=== PATIENT | male | born 1955 | race Caucasian/White ===

== ENCOUNTER 2022-02-01 22:50 | Emergency (ER) | payer MEDICARE, BC ==
--- NOTE | 2022-02-01 23:14 | ED Physician Documentation ---
PD HPI FOCAL NEURO - Stated complaint Stated Complaint: LOSS OF BALANCE - Chief complaint Chief Complaint: Neuro - Additional information Additional information: Patient is 66-year-old male presenting to the emergency department with loss of balance. Reports symptoms began acutely 2 hours ago. Reports that he simply lost balance and coordination in his legs. He has a difficult time elucidating the sensation more fully but states that if he stands up or looks upward he immediately loses his balance and feels as though he is going to fall. He denies any vertiginous sensation associated with this. Denies any tinnitus or hearing loss. 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 Currently takes baby aspirin but no other anticoagulant or antiplatelet medications. He denies any residual focal or lateralizing neurologic deficits from his previous CVA. Otherwise denies for any fever, chills, chest pain, shortness of breath, abdominal pain, nausea, vomiting, diarrhea, constipation. Review of Systems Ten Systems: 10 systems reviewed and negative Constitutional: denies: Fever Eyes: denies: Loss of vision Ears: denies: Loss of hearing Nose: denies: Rhinorrhea / runny nose Throat: denies: Dental pain / toothache Cardiac: denies: Chest pain / pressure : denies: Dysuria Skin: denies: Rash Neurologic: reports: Other (Loss of balance) PD PAST MEDICAL HISTORY - Past Medical History Past Medical History: Yes Cardiovascular: Hypertension Neuro: Other (Hemorrhagic stroke) Endocrine/Autoimmune: Type 2 diabetes - Present Medications Home Medications: Ambulatory Orders Medication Instructions Recorded Confirmed Insulin Glargine,Hum.rec.anlog 40 unit SUBQ DAILY 02/01/22 02/01/22 [Kateaglregan Singh U-100] Lisinopril [Zestril] 40 mg ORAL DAILY 02/01/22 02/01/22 Metoprolol Succinate [Toprol Xl] 25 mg ORAL BID 02/01/22 02/01/22 Propranolol [Inderal] 10 mg PO PRN PRN 02/01/22 02/01/22 Sertraline [Zoloft] 50 mg PO DAILY 02/01/22 02/01/22 amLODIPine [Norvasc] 30 mg PO DAILY 02/01/22 02/01/22 traZODone [Desyrel] 50 mg PO HS 02/01/22 02/01/22 - Allergies Allergies/Adverse Reactions: Allergies Allergy/AdvReac Type Severity Reaction Status Date / Time No Known Drug Allergies Allergy Verified 02/01/22 23:22 PD ED PE NORMAL - Vitals Vital signs reviewed: Yes - General General: Alert and oriented X 3 - HEENT HEENT: Atraumatic, PERRL, EOMI, Ears normal, Moist mucous membranes - Neck Neck: Supple, no meningeal sign, No bony TTP - Cardiac Cardiac: RRR, No gallop - Respiratory Respiratory: No respiratory distress, Clear bilaterally - Abdomen Abdomen: Normal bowel sounds, Non tender - Rectal Rectal: Deferred - Derm Derm: Normal color - Extremities Extremities: No deformity - Neuro Neuro: Alert and oriented X 3, testing director 2-12 intact, No motor deficit, No sensory deficit, Normal speech - Psych Psych: Normal mood NIHSS - Time Time: 23:15 - Level of Consciousness Level of consciousness: (0) Alert, Keenly responsive LOC Questions: (0) Answers both Q's correct - Gaze Best Gaze: (0) Normal - Visual Visual: (0) No loss - Facial Palsy Facial Palsy: (0) Normal, symmetrical movement - Motor Arms (both separate) Motor Arm (right): (0) No drift Motor Arm (left): (0) No drift - Motor Legs (both separate) Motor Leg (right): (0) No drift Motor Leg (left): (0) No drift - Limb Ataxia Limb Ataxia: (0) Absent - Sensory Sensory: (0) Normal - Best Language Best Language: (0) No aphasia - Dysarthria Dysarthria: (0) Normal - Extinction and Inattention (formally neg Extinction and inattention: (0) No abnormality Results - Vitals Vitals: Vital Signs - 24 hr 02/01/22 02/01/22 02/02/22 23:02 23:36 00:02 Temperature 36.5 C Heart Rate 81 73 73 Respiratory 18 18 19 Rate Blood Pressure 171/95 H 157/84 H 156/86 H O2 Saturation 98 100 99 02/02/22 00:30 Temperature Heart Rate 76 Respiratory 14 Rate Blood Pressure 153/86 H O2 Saturation 97 Oxygen O2 Source Room air - EKG (time done) 2306 Rate: Rate (enter#) (76) Rhythm: NSR [place]: Normal Intervals: Normal ND QRS: Normal Ischemia: T wave inversion Computer interpretation: Agree with computer - Labs Labs: Laboratory Tests 02/01/22 02/01/22 02/01/22 23:06 23:06 23:06 WBC 7.8 RBC 4.23 L Hgb 11.4 L Hct 36.2 L MCV 85.6 MCH 27.0 MCHC 31.5 L RDW 15.1 H Plt Count 281 MPV 9.1 Neut # (Auto) 4.4 Lymph # (Auto) 2.1 [place] # (Auto) 0.7 Eos # (Auto) 0.6 Baso # (Auto) 0.1 Absolute Nucleated RBC 0.00 Nucleated RBC % 0.0 PT 11.4 INR 1.0 Sodium 140 Potassium 3.9 Chloride 103 Carbon Dioxide 27 Anion Gap 10.0 BUN 29 H Creatinine 1.0 Estimated GFR (MDRD) 75 L Glucose 139 H Calcium 9.5 Total Bilirubin 0.6 AST 34 ALT 52 Alkaline Phosphatase 51 Total Protein 8.0 Albumin 4.7 Globulin 3.3 Albumin/Globulin Ratio 1.4 Lipase 43 SARS-CoV-2 (PCR) 02/01/22 23:18 WBC RBC Hgb Hct MCV MCH MCHC RDW Plt Count MPV Neut # (Auto) Lymph # (Auto) [place] # (Auto) Eos # (Auto) Baso # (Auto) Absolute Nucleated RBC Nucleated RBC % PT INR Sodium Potassium Chloride Carbon Dioxide Anion Gap BUN Creatinine Estimated GFR (MDRD) Glucose Calcium Total Bilirubin AST ALT Alkaline Phosphatase Total Protein Albumin Globulin Albumin/Globulin Ratio Lipase SARS-CoV-2 (PCR) NOT DETECTED PD MEDICAL DECISION MAKING - ED course Complexity details: reviewed results, re-evaluated patient, d/w patient, d/w family, d/w webmethods consultant ED course: Patient is 66-year-old male presenting to the emergency department with acute loss of balance. Arrived to the emergency department within 2 hours of the onset of his symptoms. Does have recent history of hemorrhagic CVA and is not a tPA candidate. I did initiate a stroke alert however and obtained both CT scans of the head as well as CTA scans of the head and neck. These were negative for any recurrent hemorrhagic event or identified infarct however there was some mild narrowing of the basilar artery. Labs obtained were within normal limits or nonactionable. While in the emergency department patient's initial neurologic exam had an NIH score of 0 however upon initial arrival to the emergency department I did not test his balance, gait or evaluate for any insufficiency of Romberg's positioning. While in the emergency department his symptoms did completely resolve and he was able to ambulate without difficulty back and forth to the bathroom. I did discuss his care directly with neurology at [facility] who do recommend MRI/MRA. Additionally they had recommendations to ensure that the patient is either on or initiated on a high- dose 80 mg daily statin and once the MR imaging is obtained to initiate dual antiplatelet therapy. His care was discussed with the emergency department at [facility]. At this time they are the nearest facility that has MR capability and is able to accept him for evaluation. Unfortunately we do not have MR capability at this facility for the next week. Family however is agreeable for transfer to [facility] for evaluation. Transferred from our facility in an asymptomatic and otherwise medically stable condition. Departure - Departure Disposition: 02 Transfer Acute Care Hosp Clinical Impression: TIA (transient ischemic attack)
[2022-02-01 23:17] LABS: BASOPHILS # (AUTO) 0.1 10^3/uL (0.0-0.1); BASOPHILS % (AUTO) 0.9 %; EOSINOPHILS # (AUTO) 0.6 10^3/uL (0.0-0.7); EOSINOPHILS % (AUTO) 7.3 %; HCT - HEMATOCRIT 36.2 % (42.0-52.0); HGB - HEMOGLOBIN 11.4 g/dL (14.0-18.0); LYMPHOCYTES # (AUTO) 2.1 10^3/uL (1.5-3.5); LYMPHOCYTES % (AUTO) 26.4 %; MEAN CORPUSCULAR HGB CONC 31.5 g/dL (32.0-36.0); MEAN CORPUSCULAR VOLUME 85.6 fL (80.0-94.0); MEAN PLATELET VOLUME 9.1 fL (7.4-11.4); MONOCYTES # (AUTO) 0.7 10^3/uL (0.0-1.0); MONOCYTES % (AUTO) 8.7 %; NEUTROPHILS # (AUTO) 4.4 10^3/uL (1.5-6.6); NEUTROPHILS % (AUTO) 56.6 %; PLT - PLATELET COUNT 281 10^3/uL (130-450); RED BLOOD COUNT 4.23 10^6/uL (4.70-6.10); RED CELL DISTRIBUTION WIDTH 15.1 % (12.0-15.0); WHITE BLOOD COUNT 7.8 x10^3/uL (4.8-10.8)
[2022-02-01 23:23] LABS: PT - PROTHROMBIN TIME 11.4 secs (9.9-12.6)
--- NOTE | 2022-02-01 23:43 | CT Report ---
PROCEDURE: Head W/O Stroke Protocol INDICATIONS: Neuro deficit, acute, stroke suspected TECHNIQUE: Noncontrast 5 mm thick angled axial sections acquired from the foramen magnum to the vertex, with cor onal reformats. For radiation dose reduction, the following was used: automated exposure control, a djustment of mA and/or kV according to patient size. COMPARISON: FINDINGS: Image quality: Excellent. CSF spaces: Ventricles appear normal in size. Basal cisterns are patent. No extra-axial fluid colle ctions. Brain: No intracranial hemorrhage, mass, or mass effect. Flower-white matter interface is preserved. T here are subcortical and periventricular white matter hypodensities consistent with mild chronic smal l vessel ischemic changes. Skull and face: Calvarium and visualized facial bones are intact, without suspicious lesions. Sinuses: Visualized sinuses and mastoids are clear. IMPRESSION: 1. No intracranial hemorrhage or other imaging contraindications to TPA. 2. Mild chronic white matter small vessel ischemic changes. Findings discussed Dr. Lopez on 02/01/2022 at 11:39 PM. This study fulfills neurological imaging criteria for inclusion or exclusion of acute stroke therapie s based on available published neurological imaging guidelines. Reviewed by: Kosta Husain MD on 02/01/2022 11:42 PM PDT Approved by: Kosta Husain MD on 02/01/2022 11:42 PM PDT Station ID: [id number]
[2022-02-01] MEDS ORDERED: iohexoL-300 100 ML VIAL IVP ONE (23:55)
--- NOTE | 2022-02-01 23:58 | CT Report ---
PROCEDURE: ANGIO HEAD W/WO INDICATIONS: CVA CONTRAST: IV CONTRAST: Isovue 300 ml: 80 PO CONTRAST: *NO PO CONTRAST TECHNIQUE: After the administration of intravenous contrast, 1 mm thick sections acquired through the [place] of [place]. Postcontrast 5 mm thick sections then re-acquired from the foramen magnum to the vertex. 3- dimensional tqpommb-ewzcqudhc-kawajklobm (MIP) and/or volume rendering reformats were acquired of the central intracranial vasculature. For radiation dose reduction, the following was used: automated exposure control, adjustment of mA and/or kV according to patient size. COMPARISON: Concurrent CT of the head. FINDINGS: Image quality: Excellent. CSF spaces: Ventricles are normal in size. Basal cisterns are patent. No extra-axial fluid collectio ns. Brain: No intracranial hematoma collections, mass, or mass effect. Flower-white matter interface is pr eserved. There are subcortical and periventricular white matter hypodensities consistent with mild ch ronic small vessel ischemic changes. No abnormal intracranial enhancement. Skull and face: Calvarium and facial bones appear intact, without suspicious lesions. Sinuses: Visualized sinuses and mastoids are clear. Anterior circulation: Intracranial internal carotid arteries are patent bilaterally. There is multi focal calcification along the cavernous segments of the internal carotid arteries bilaterally with as sociated mild multifocal narrowing. The paired anterior cerebral arteries are patent bilaterally. Th e middle cerebral arteries are also patent bilaterally. The anterior communicating artery is patent. No high-grade stenosis, occlusion, or discrete filling defects. No cerebral aneurysm identified. Posterior circulation: Visualized portions of the vertebral arteries appear patent and join to form a patent basilar artery. There is mild to moderate focal narrowing within the basilar artery with driss roximately 40-50% narrowing. The posterior cerebral arteries are patent bilaterally. No high-grade s tenosis, occlusion, or discrete filling defects. No cerebral aneurysm identified. IMPRESSION: 1. No high-grade stenosis or occlusion of the central intracranial arteries. 2. 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 Reviewed by: Kosta Husain MD on 02/01/2022 11:56 PM PDT Approved by: Kosta Husain MD on 02/01/2022 11:56 PM PDT Station ID: [id number]
[2022-02-02 00:02] LABS: ALBUMIN 4.7 g/dL (3.2-5.5); ALBUMIN/GLOBULIN RATIO 1.4 (1.0-2.2); BILIRUBIN,TOTAL 0.6 mg/dL (0.2-1.0); CALCIUM 9.5 mg/dL (8.5-10.3); POTASSIUM 3.9 mmol/L (3.5-5.0)
--- NOTE | 2022-02-02 00:03 | CT Report ---
PROCEDURE: ANGIO NECK W INDICATIONS: CVA CONTRAST: IV CONTRAST: Isovue 300 ml: 80 PO CONTRAST: *NO PO CONTRAST TECHNIQUE: After the administration of intravenous contrast, 1.5 mm axial sections acquired from the aortic arch to the [place] of [place]. Coronal 3-D maximum intensity projection (MIP) and/or volume rendering ref ormats were then performed. For radiation dose reduction, the following was used: automated exposur e control, adjustment of mA and/or kV according to patient size. COMPARISON: None. FINDINGS: Image quality: Excellent. Carotid system: The great vessels demonstrate a conventional anatomy as they arise from the aortic a rc. The origins of the common carotid arteries appear patent. The common carotid arteries demonstr ate normal calibers and courses. There is mild wall thickening in the carotid bulbs with minimal cj rowing of less than 20%. The internal carotid arteries demonstrate normal caliber and course. Posterior circulation: The origins of the vertebral arteries appear patent. The more superior porti ons of the vertebral arteries demonstrate normal course and caliber. They join to form a patent basi lar artery. There is mild narrowing in the basilar artery. Soft tissues: Visualized neck soft tissues demonstrate no suspicious abnormalities. Bones: No suspicious bony lesions. Visualized cervical spine demonstrates slight reversal of cervic al lordosis. There is mild to moderate multilevel degenerative disc disease and facet arthropathy. Th ere is mild mucosal thickening in the ethmoid, maxillary, sphenoid sinuses. IMPRESSION: 1. No high-grade stenosis or occlusion of the head and neck arteries. 2. Minimal narrowing in the carotid bulbs of less than 20%. 3. Mild focal narrowing in the basilar artery. The estimate of stenosis included in the report of the imaging study was calculated using the NASCET method Reviewed by: Kosta Cole MD on 02/02/2022 12:01 AM PDT Approved by: Kosta Cole MD on 02/02/2022 12:01 AM PDT Station ID: [id number]
[2022-02-02] MEDS ORDERED: iohexoL-300 100 ML VIAL ONE (00:06)
[2022-02-02 01:13] VITALS: BP 149/86
== END 2022-02-02 01:24 | disposition short-term general hospital (02) ==
LOC: ED 22:50
DX: G45.9 Transient cerebral ischemic attack, unspecified (principal); Z20.822 Contact with and (suspected) exposure to COVID-19
CPT/HCPCS: 36415; 70450; 70496; 70498; 80053; 83690; 85025; 85610; 87635; 93005; 99284; 99285; Q9967

== ENCOUNTER 2022-11-12 08:15 | Outpatient (CLI) | payer MEDICARE, OTHER ==
[2022-11-12] MEDS ORDERED: iohexoL-300 100 ML VIAL ONE (08:36)
[2022-11-12] MEDS ORDERED: iohexoL-300 100 ML VIAL IVP ONE (10:06)
--- NOTE | 2022-11-12 17:34 | CT Report ---
PROCEDURE: ANGIO HEAD W/WO INDICATIONS: CVA CONTRAST: 80ml Omnipaque 300 TECHNIQUE: Precontrast 4.5 mm thick angled axial sections acquired from the foramen magnum to the vertex. Afte r the administration of intravenous contrast, 1 mm thick sections acquired through the [place] of [place]. Postcontrast 4.5 mm thick sections then re-acquired from the foramen magnum to the vertex. 3-di mensional inaqngz-knpuoeriv-crpuhosdbl (MIP) and/or volume rendering reformats were acquired of the c entral intracranial vasculature. For radiation dose reduction, the following was used: automated ex posure control, adjustment of mA and/or kV according to patient size. COMPARISON: Correlation is made with the accompanying neck CT angiogram, May 13. Correlation is also made with prior CT examinations, 02/01/2022. FINDINGS: Image quality: Excellent. Anterior circulation: Intracranial internal carotid arteries are normal in size and flow. The flow within the paired anterior cerebral arteries is normal and symmetric. The flow within the middle cer ebral arteries is normal and symmetric. The anterior communicating artery is seen. No aneurysms are seen. Posterior circulation: Visualized portions of the vertebral arteries demonstrate normal caliber. Wit hin the basilar artery, there is again seen generalized irregularity, with areas of mild to moderate narrowing. Flow within the posterior cerebral arteries is normal and symmetric. No aneurysms are se en. CSF spaces: Ventricles are normal in size and shape. Basal cisterns are patent. No extra-axial flu id collections. Brain: No midline shift. No intracranial bleeds or masses. Flower-white matter interface appears int act. Skull and face: Calvarium and facial bones appear intact, without suspicious lesions. Sinuses: Moderate mucosal thickening is seen within the visualized left maxillary sinus as well as th e ethmoid air cells. Focal mucosal thickening can be seen involving the posterior left sphenoid sinus . No significant abnormal fluid can be seen within the mastoid air cells. IMPRESSION: Stable irregularity noted of the basilar artery, with mild to moderate areas of luminal narrowing. Th is is not significantly changed compared to the prior head CT angiogram. Reviewed by: Alex Broussard MD on 11/12/2022 4:33 PM FERMÍN Approved by: Alex Broussard MD on 11/12/2022 4:33 PM AKSARMAD Station ID: [id number]
--- NOTE | 2022-11-12 17:36 | CT Report ---
PROCEDURE: ANGIO NECK W INDICATIONS: CVA CONTRAST: 80ml Omnipaque 300 TECHNIQUE: After the administration of intravenous contrast, 1.5 mm axial sections acquired from the aortic arch to the [place] of [place]. Coronal 3-D maximum intensity projection (MIP) and/or volume rendering ref ormats were then performed. For radiation dose reduction, the following was used: automated exposur e control, adjustment of mA and/or kV according to patient size. COMPARISON: Correlation is made with the accompanying head CT angiogram, 11/12/2022. Correlation is a lso made with the prior CT examinations dated 02/01/2022. FINDINGS: Image quality: Excellent. Carotid system: The great vessels demonstrate a conventional anatomy as they arise from the aortic a rch. The origins of the common carotid arteries appear patent. The common carotid arteries demonstr ate normal calibers and courses. The bifurcation regions appear normal bilaterally. The internal ca rotid arteries demonstrate normal caliber and course. Posterior circulation: The origins of the vertebral arteries appear patent. The more superior porti ons of the vertebral arteries demonstrate normal course and caliber. Stable irregularity is seen invo lving the basilar artery, with areas of mild to moderate luminal narrowing. Soft tissues: Visualized neck soft tissues demonstrate no suspicious abnormalities. The thyroid is normal in size and there are no incidental findings. Bones: No suspicious bony lesions. Visualized cervical spine appears normally aligned. Moderate l ower cervical spine degenerative change can be seen. 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 Th patrizia findings are similar to the prior. The estimate of stenosis included in the report of the imaging study was calculated using the NASCET method Reviewed by: Alex Broussard MD on 11/12/2022 4:35 PM FERMÍN Approved by: Alex Broussard MD on 11/12/2022 4:35 PM AKSARMAD Station ID: [id number]
== END 2022-11-12 08:16 | disposition home or self-care (01) ==
LOC: DI 08:15
PROVIDERS: ATTEND Psychiatry & Neurology Neurology
DX: I65.1 Occlusion and stenosis of basilar artery (principal); I63.9 Cerebral infarction, unspecified; I67.2 Cerebral atherosclerosis
CPT/HCPCS: 70496; 70498; Q9967